=== PATIENT | female | born 1990 | race Two or more races ===

== ENCOUNTER 2019-04-24 08:52 | Emergency (ER) | payer BC, MEDICAID ==
[~2019-04-24] VITALS: Ht 149.9 cm; Wt 72.6 kg
[~2019-04-24 08:52] MED LIST: GENTAMICIN SULF15 G2 TOPIC
[2019-04-24 09:09] VITALS: BP 108/62
--- NOTE | 2019-04-24 09:09 | NUR ---
ED Nurse Note: Pt ambulated into ED c/o lower back pain radiating down left leg. Pt states pain is 8/10 and sharp, aching in nature. Pt reports numbness on left side of hip. Pt has hx of scoliosis. Pt denies any issues urinating, defecating, fever, chills. Pt denies drug, alcohol and tobacco use. Pt ambulatory, breathing is normal and unlabored, speaking in full sentences. Pt is aox4. Will continue to monitor.
--- NOTE | 2019-04-24 09:24 | NUR ---
ED Nurse Note: patient unable to provide urine sample at this time Dr. Acharya made aware. confirmed with the patient that there will be no way that she may be . giving medication as ordred at this time.
[2019-04-24] MEDS ORDERED: LIDODERM700 M1 TOPIC (09:25)
[2019-04-24] MEDS ORDERED: NAPROXEN250 MG ORAL (09:25)
[2019-04-24] MEDS ORDERED: ROBAXIN-750750 MG PO (09:25)
[2019-04-24] MEDS ORDERED: ACETAMINOPHEN500 M5 ORAL (09:25)
--- NOTE | 2019-04-24 09:26 | Emergency Room Report ---
History of Present Illness General Chief Complaint: Back Pain-No Injury Source: Patient Present Illness HPI 28-year-old female presents with low back pain 3 days travel pta, left lower back, worse with movement alleviated with rest severity is moderate, intermittent, worse with bending, straining, she has no bowel bladder retention/incontinence, no perianal numbness, no weakness, she endorses the pain radiates down her left outer leg, no fevers no chills no history of IV drug use patient presents for evaluation Allergies: Coded Allergies: No Known Allergies (Verified Allergy, Unknown, 03/02/07) Patient History Past Medical History: see triage record Last Menstrual Period: 04/11/19, Now: No Reviewed Nursing Documentation: PMH: Agreed; PSxH: Agreed Nursing Documentation-PMH Past Medical History: No Stated History Review of Systems All Other Systems: negative except mentioned in HPI Physical Exam Vital Signs Date Time Temp Pulse Resp B/P (MAP) Pulse Ox O2 Delivery O2 Flow Rate FiO2 04/24/19 09:02 98.2 84 16 108/62 (77) 97 Room Air General Appearance: well appearing, no apparent distress Head: normocephalic, atraumatic Eyes: bilateral eye PERRL, bilateral eye EOMI ENT: hearing grossly normal, normal voice Neck: full range of motion, supple Respiratory: no respiratory distress, speaking full sentences Musculoskeletal: other - Left lower back office medical assistant to palpation paraspinal, no midline tenderness no step-offs, 2+ reflexes patellar, sensation grossly intact out of 5 plantar flexion of the feet, dorsiflexion at the ankle, 5/5 strength knee flexion/extension, 5-5 strength hip extension/flexion, gait intact Neurologic: alert, normal gait Psychiatric: mood/affect normal Skin: no rash Medical Decision Making Diagnostic Impression: Primary Impression: Back pain Qualified Codes: M54.42 - Lumbago with sciatica, left side ER Course The patient presents with acute onset of back pain after bending over. Clinically this patient can be ruled out for serious pathology given there is a completely normal neurological exam, no history of IV drug use, and no history of bowel or bladder incontinence, no perianal numbness/tingling, no constipation or urinary retention. Once the patient's pain was adequately controlled, the patient was able to ambulate and be discharged in stable condition with anticipatory guidance provided. Patient deferred test, just wants treatment, aware of risks and benefits. Last Vital Signs Date Time Temp Pulse Resp B/P (MAP) Pulse Ox O2 Delivery O2 Flow Rate FiO2 04/24/19 09:09 98.2 80 16 108/62 97 Room Air Disposition: HOME, SELF-CARE Condition: Stable Scripts Methocarbamol* (ROBAXIN-750*) 750 Mg Tablet 750 MG PO QID, #28 TAB 0 Refills Prov: Jayme Acharya MD 04/24/19 Lidocaine Patch* (Lidoderm Patch*) 1 Each Adh..patch 1 PATCH TOPIC DAILY, #7 PATCH 0 Refills Patch(es) may remain in place for up to 12 hours in any 24-hour period. Prov: Jayme Acharya MD 04/24/19 Acetaminophen (Acetaminophen) 500 Mg Tablet 1000 MG ORAL Q8H for PAIN, #60 TAB Prov: Jayme Acharya MD 04/24/19 Naproxen* (NAPROSYN*) 250 Mg Tablet 250 MG ORAL BID PRN for For Pain, #20 TAB 0 Refills Prov: Jayme Acharya MD 04/24/19 Referrals: [facility] Patient Instructions: Back Pain, Adult, Sciatica Additional Instructions: The patient was provided with discharge instructions, notified to follow-up with a primary care doctor and or specialist in the next 24-48 hours, and to return to the ED if they have worsening of their symptoms. Please note that this report is being documented using DRAGON technology. This can lead to erroneous entry secondary to incorrect interpretation by the dictating instrument. Jayme Acharya MD Apr 24, 2019 09:26
[2019-04-24] MEDS ORDERED: Acetaminophen 500mg (ES) tab ORAL ONE (09:30)
[2019-04-24] MEDS ORDERED: Hydromorphone 0.5mg/0.5ml inj IM ONE (09:30)
[2019-04-24] MEDS ORDERED: Methocarbamol 750mg tab ORAL ONE (09:30)
[2019-04-24] MEDS ORDERED: Ketorolac 30mg Inj IM ONE (09:30)
--- NOTE | 2019-04-24 09:30 | NUR ---
ED Nurse Note: Pt given medication without any complications. Will continue to monitor.
--- NOTE | 2019-04-24 10:00 | NUR ---
ED Nurse Note: Pt states she is feeling better and pain has gone down to 3/10.
[2019-04-24 10:02] VITALS: BP 124/83
[2019-04-24 10:06] VITALS: BP 124/83
--- NOTE | 2019-04-24 10:06 | NUR ---
ED Nurse Note: Pt cleared by ERMD for discharge. DC instructions/prescription was given and explained to pt and significant other. Pt verbalized understanding of teachings. ID band removed. Pt accompanied by significant other. Pt instructed to not drive at this time due to drowsiness from pain medication, pt verbalized understanding and stated significant other would drive home. Pt is AAO x4, vss, ambulatory with steady gait and left with all personal belongings.
== END 2019-04-24 10:06 | disposition home or self-care (01) ==
LOC: EMR 09:15
DX: M54.42 Lumbago with sciatica, left side (principal)
CPT/HCPCS: 96372; 99283; J1170; J1885